=== PATIENT | male | born 2000 | race Caucasian/White ===

== ENCOUNTER 2021-09-21 02:56 | Emergency (ER) | payer OTHER ==
[2021-09-21 03:03] VITALS: BP 144/80; PULSE 92; RESP 16; TEMP 98; BMI 29.1
== END 2021-09-21 03:38 | disposition home or self-care (01) ==
LOC: FER 02:56
PROC: 2W3DX1Z Immobilization of Left Lower Arm using Splint (ICD-10-PCS; principal; 2021-09-21)
DX: S62.307A Unspecified fracture of fifth metacarpal bone, left hand, initial encounter for closed fracture (principal); W22.8XXA Striking against or struck by other objects, initial encounter
CPT/HCPCS: 73130-TC-LT-FY; 99283-25